=== PATIENT | male | born 1975 | race Caucasian/White ===

== ENCOUNTER 2017-09-28 19:15 | Observation (INO) ==
[2017-09-29] MEDS ORDERED: Acetaminophen 500 MG Tablet PO PRN (00:02)
[2017-09-29 01:15] LABS: Creatine Kinase 76 U/L (39-308)
[2017-09-29 03:48] LABS: Anion Gap 10 meq/L (5-15); Blood Urea Nitrogen 12 mg/dL (7-18); Calcium 8.4 mg/dL (8.5-10.1); Carbon Dioxide 24.4 meq/L (21.0-32.0); Chloride 112 meq/L (98-107); Glomerular Filtration Rate Greater Than 89 mL/min (>89); Glucose,Random 86 mg/dL (74-106); Lipase 210 U/L (73-393); Magnesium 2.3 mg/dL (1.5-2.5); Sodium 146 meq/L (136-145)
[2017-09-29 04:05] LABS: Creatine Kinase 72 U/L (39-308)
[2017-09-29 04:47] LABS: Baso % (Auto) 0.4 % (0.0-2.0); Eos # (Auto) 0.2 th/mm3 (0.0-0.4); Eos % (Auto) 2.3 % (0.0-4.0); Hematocrit 42.9 % (39.0-51.0); Hemoglobin 14.7 gm/dL (13.0-17.0); Lymph # (Auto) 2.3 th/mm3 (1.0-4.8); Lymph % (Auto) 24.8 % (9.0-44.0); Mean Corpuscular HGB Conc 34.3 % (32.0-36.0); Mean Corpuscular Hemoglobin 32.3 pg (27.0-34.0); Mean Corpuscular Volume 94.1 fL (80.0-100.0); Mean Platelet Volume 7.5 fL (7.0-11.0); Mono # (Auto) 0.5 th/mm3 (0.0-0.9); Mono % (Auto) 5.8 % (0.0-8.0); Neut # (Auto) 6.2 th/mm3 (1.8-7.7); Neut % (Auto) 66.7 % (16.0-70.0); Platelet Count 220 th/mm3 (150-450); Red Blood Count 4.56 mil/mm3 (4.50-5.90); Red Cell Distribution Width 12.7 % (11.6-17.2); White Blood Count 9.3 th/mm3 (4.0-11.0)
--- NOTE | 2017-09-29 08:04 | P.HPCA ---
History of Present Illness Primary Care Physician: UNKNOWN Chief Complaint: Chest pain History of Present Illness: This is a 42-year-old male with history of tobacco abuse that presents to ED via private vehicle with a female acquaintance with complaint of chest discomfort. First episode began yesterday [place] He describes as a central stabbing discomfort. Rated as an 8-9 out of 10. He was short of breath. No nausea or diaphoresis. No radiation of the discomfort. States he got out of the water and essentially rested and symptoms resolve within 15 minutes. While driving in his truck to the hospital it began again similar symptoms lasted a similar duration of time. It then recurred again while in the ED. Also lasting about 15 minutes. Has had episodes of chest discomfort before. Based the chest discomfort was evaluated about 7 or 8 years ago and that he had a stress test that was normal. Denies history of hypertension, hyperlipidemia, diabetes, and CAD. Currently denies chest discomfort. States that he would not be able to walk on a treadmill, states that he broke his fibula and points to below his left knee to indicate where the fracture was. This occurred about 10 weeks ago and is still bothers him. Denies family history of CAD. Patient smokes 1 pack a series daily for about 25 years. He has a few beers a couple times a week. Denies illicit drug use. Surgical history: Denies. - Diagnosis (1) Chest pain (2) Tobacco abuse - Inpatient Certification If this patient has been admitted as an Inpatient: I certify that the inpatient services were ordered in accordance with Medicare regulations governing the order. This includes certification that hospital inpatient services are reasonable and necessary and in the case of services not specified as inpatient-only under 42 CFR 419.22(n), that they are appropriately provided as inpatient services in accordance to with the 2-midnight benchmark under 43 CFR 412.3(e) Review of Systems General: Patient denies fevers, chills, and recent travel. HEENT: Patient denies headache, sore throat, difficulty swallowing. Cardiovascular: Has the chest discomfort as mentioned above. [place] as if heart was beating rapidly and pounding hard. No syncope. Denies diaphoresis. Respiratory: He was short of breath. Denies inspirational chest discomfort. Denies coughing wheezing or hemoptysis. GI: Patient denies nausea, vomiting, diarrhea, abdominal pain, bloody stools. Musculoskeletal: Complains of pain to the proximal left fibula which he states he fractured about 10 weeks ago. Patient denies joint pain or edema. Denies calf pain or edema. Neurovascular: Patient denies numbness, tingling, weakness in extremities. Denies headache. Endocrine: Denies polyuria and polydipsia. Hematologic: Denies easy bruising. Skin: Denies rash or itching. PMFSH - History History Provided By: Patient - Medical History Medical History: Medical History (Last Updated 09/28/17 @ 19:33 by Susanna Ly) Patient denies medical problems - Tobacco History Second Hand Smoke Exposure: Yes Tobacco Use In Past 30 Days: Yes Smoking Status: Current every day smoker Tobacco Type: Cigarettes - Alcohol History How Often Do You Have a Drink Containing Alcohol: Monthly or less - Substance Use History Substance History: No History of Abuse Medications and Allergies Active Medications: Active Medications Acetaminophen (Tylenol) 500 mg PO Q4H PRN PRN Reason: HEADACHE Ondansetron HCl (Zofran Odt) 4 mg PO Q6H PRN PRN Reason: NAUSEA Pantoprazole Sodium (Protonix) 40 mg PO DAILY ONIEL Sodium Chloride (Ns Flush) 2 ml IV.FLUSH PRN PRN PRN Reason: FLUSH AFTER USING IV ACCESS Sodium Chloride (Ns Flush) 2 ml IV.FLUSH BID ONIEL Allergies Allergy/AdvReac Type Severity Reaction Status Date / Time No Known Allergies Allergy Unverified 09/28/17 19:18 Home Medications Medication Instructions Recorded Confirmed Type No Known Home Medications 09/28/17 09/29/17 History Exam Vital signs: Vital Signs 09/28/17 23:11 09/29/17 00:56 09/29/17 03:02 Temperature 98.2 F 97.8 F Pulse Rate 77 71 72 Respiratory Rate 18 Blood Pressure 113/69 116/71 Pulse Oximetry 95 95 Intake & Output 09/28/17 09/29/17 09/29/17 18:59 06:59 18:59 Weight 70.45 kg Narrative: GENERAL: This is a well-nourished, well-developed patient, in no apparent distress. Patient speaks in clear complete sentences. Patient is pleasant. HEENT: Head is atraumatic and normocephalic. Neck is supple without lymphadenopathy and trachea is midline. No JVD or carotid bruits. CARDIOVASCULAR: Regular rate and rhythm without murmurs, gallops, or rubs. RESPIRATORY: Clear to auscultation. Breath sounds equal bilaterally. No wheezes , rales, or rhonchi. Chest wall is nontender. No use of accessory muscles. GASTROINTESTINAL: Abdomen is nontender, nondistended. Abdomen soft. No obvious pulsatile mass or bruit. No CVA tenderness. Strong femoral pulses bilaterally. Normal bowel sounds in all quadrants. MUSCULOSKELETAL: Patient is moving upper and lower extremities freely. No calf tenderness or edema, no Homans sign. Strong pulses in upper and lower extremities. NEUROLOGICAL: Patient is alert and oriented. Cranial nerves 2-12 are grossly intact. No focal deficits and speech is clear. SKIN: No rash and turgor is normal. Results 09/29/17 03:45 09/29/17 03:01 Cardiac Enzymes 09/29/17 09/29/17 09/29/17 Range/Units 00:25 03:01 03:45 Troponin I Less than 0.02 L Less than 0.02 L (0.02-0.05) ng/mL B-Natriuretic Peptide 14 (0-100) pg/mL Coagulation 09/29/17 09/29/17 Range/Units 03:45 03:45 PT 10.0 (9.8-11.6) sec APTT 24.0 L (24.3-30.1) sec B-Natriuretic Peptide 14 (0-100) pg/mL CBC 09/29/17 Range/Units 03:45 WBC 9.3 (4.0-11.0) th/mm3 RBC 4.56 (4.50-5.90) mil/mm3 Hgb 14.7 (13.0-17.0) gm/dL Hct 42.9 (39.0-51.0) % Plt Count 220 (150-450) th/mm3 Neut # (Auto) 6.2 (1.8-7.7) th/mm3 Lymph # (Auto) 2.3 (1.0-4.8) th/mm3 Sandoval # (Auto) 0.5 (0.0-0.9) th/mm3 Eos # (Auto) 0.2 (0.0-0.4) th/mm3 Baso # (Auto) 0.0 (0.0-0.2) th/mm3 Comprehensive Metabolic Panel 09/29/17 Range/Units 03:01 Sodium 146 H (136-145) meq/L Potassium 4.0 (3.5-5.1) meq/L Chloride 112 H (98-107) meq/L Carbon Dioxide 24.4 (21.0-32.0) meq/L BUN 12 (7-18) mg/dL Creatinine 0.82 (0.60-1.30) mg/dL Calcium 8.4 L D (8.5-10.1) mg/dL Intake and Output 09/28/17 09/29/17 09/29/17 22:59 06:59 14:59 Other: Weight 70.45 kg EKG interpretations - EKG EKG shows: sinus rhythm (EKGs are sinus rhythm without significant ST segment depressions or elevations.) Caprini VTE Risk Assessment Caprini VTE Risk Assessment: No/Low Risk (score <= 1) Caprini Risk Assessment Model: Point Value = 1 Point Value = 2 Point Value = 3 Point Value = 5 Age 41-60 Minor surgery BMI > 25 kg/m2 Swollen legs Varicose veins or History of unexplained or recurrent spontaneous Oral contraceptives or hormone replacement Sepsis (< 1 month) Serious lung disease, including pneumonia (< 1 month) Abnormal pulmonary function Acute myocardial infarction Congestive heart failure (< 1 month) History of inflammatory bowel disease Medical patient at bed rest Age 61-74 Arthroscopic surgery Major open surgery (> 45 min) Laparoscopic surgery (> 45 min) Malignancy Confined to bed (> 72 hours) Immobilizing plaster cast Central venous access Age >= 75 History of VTE Family history of VTE Factor V Leiden Prothrombin [id number] Lupus anticoagulant Anticardiolipin antibodies Elevated serum homocysteine Heparin-induced thrombocytopenia Other congenital or acquired thrombophilia Stroke (< 1 month) Elective arthroplasty Hip, pelvis, or leg fracture Acute spinal cord injury (< 1 month) Prophylaxis Regimen: Total Risk Factor Score Risk Level Prophylaxis Regimen 0-1 Low Early ambulation 2 Moderate Order ONE of the following: *Sequential Compression Device (SCD) *Heparin 5000 units SQ BID 3-4 Higher Order ONE of the following medications: *Heparin 5000 units SQ TID *Enoxaparin/Lovenox 40 mg SQ daily (WT < 150 kg, CrCl > 30 mL/min) *Enoxaparin/Lovenox 30 mg SQ daily (WT < 150 kg, CrCl > 10-29 mL/min) *Enoxaparin/Lovenox 30 mg SQ BID (WT < 150 kg, CrCl > 30 mL/min) AND/OR *Sequential Compression Device (SCD) 5 or more Highest Order ONE of the following medications: *Heparin 5000 units SQ TID (Preferred with Epidurals) *Enoxaparin/Lovenox 40 mg SQ daily (WT < 150 kg, CrCl > 30 mL/min) *Enoxaparin/Lovenox 30 mg SQ daily (WT < 150 kg, CrCl > 10-29 mL/min) *Enoxaparin/Lovenox 30 mg SQ BID (WT < 150 kg, CrCl > 30 mL/min) AND *Sequential Compression Device (SCD) Assessment and Plan - Assessment (1) Chest pain Code(s): R07.9 - Chest pain, unspecified Status: Acute (2) Tobacco abuse Code(s): Z72.0 - Tobacco use Status: Chronic - Plan * Chest pain: Patient has had serial cardiac enzymes and EKGs for ruling out purposes. He will be seen by Dr. Hagan of cardiology in the chest pain center. States he cannot walk on a treadmill secondary to fractured left fibula , subsequently patient will have a Lexiscan. Patient will be discharged home if stress test is nonischemic with instructions to follow-up with PCP. Return to ED for interval issues. * Tobacco abuse: Patient counseled on importance of smoking cessation. Patient is stable at this time. He is agreeable to this plan. H&P: Quality - VTE Deep Vein Thrombosis/Pulmonary Embolism Present on Admission: No
--- NOTE | 2017-09-29 09:42 | P.PNCA ---
Subjective Interval history: Patient was presented by physician information systems coordinator. The documentation was then reviewed including radiographic and laboratory data. The patient was then seen and examined personally. History is as described with the additional information that the patient tells me just prior to the onset of chest pain his heart was pounding fast and felt like it was going to "come out of my chest". His girlfriend checked his pulse on several occasions and it ranged from 120-110. Otherwise history is as recorded Physical Exam Vital signs: Vital Signs 09/28/17 23:11 09/29/17 00:56 09/29/17 03:02 Temperature 98.2 F 97.8 F Pulse Rate 77 71 72 Respiratory Rate 18 Blood Pressure 113/69 116/71 Pulse Oximetry 95 95 09/29/17 08:15 Temperature 97.5 F L Pulse Rate 63 Respiratory Rate 18 Blood Pressure 118/82 Pulse Oximetry 96 Intake & Output 09/28/17 09/29/17 09/29/17 18:59 06:59 18:59 Weight 70.45 kg Narrative: Well-nourished well-developed man resting comfortably other than complaints of headache Head normocephalic atraumatic Eyes PERRLA EOMI sclera clear Mouth mucous membranes moist and well papillated no lesions Neck supple no JVD masses nodes or bruits Chest clear to auscultation with no rales wheezes or rhonchi Cardiovascular regular sinus rhythm no gallops rubs or murmurs Abdomen soft nontender no guarding or rebound Extremities no clubbing cyanosis or edema still slightly tender over the area of previous fracture Skin multiple tattoos Assessment and Plan - Plan * Chest pain: Patient has had serial cardiac enzymes and EKGs for ruling out purposes. He will be seen by Dr. Hagan of cardiology in the chest pain center. States he cannot walk on a treadmill secondary to fractured left fibula , subsequently patient will have a Lexiscan. Patient will be discharged home if stress test is nonischemic with instructions to follow-up with PCP. Return to ED for interval issues. * Tobacco abuse: Patient counseled on importance of smoking cessation. Patient is stable at this time. He is agreeable to this plan. Above reviewed with physician information systems coordinator and I am in agreement. (Dr. Hagan)
--- NOTE | 2017-09-29 10:08 | ECG ---
Date Performed: 09/29/2017 Time Performed: 02:57:25 PTAGE: 42 years EKG: Sinus rhythm MODERATE VOLTAGE CRITERIA FOR LVH, CONSIDER NORMAL VARIANT BORDERLINE ECG No significant change NO PREVIOUS TRACING DOCTOR: Luke Hagan Interpretating Date/Time 09/29/2017 10:07:01
--- NOTE | 2017-09-29 10:08 | ECG ---
Date Performed: 09/29/2017 Time Performed: 00:15:49 PTAGE: 42 years EKG: Sinus rhythm MINIMAL VOLTAGE CRITERIA FOR LVH, CONSIDER NORMAL VARIANT BORDERLINE ECG No significant change PREVIOUS TRACING : 09/28/2017 20.36 DOCTOR: Luke Hagan Interpretating Date/Time 09/29/2017 10:07:14
[2017-09-29] MEDS ORDERED: Regadenoson Inj 0.4 MG/5 ML Syringe IV.PUSH ONE (11:50)
--- NOTE | 2017-09-29 13:18 | NM ---
EXAM DATE: 09/29/2017 1:11 PM EDT AGE/SEX: 42 years / Male INDICATIONS:Angina. . Chest pain. CLINICAL DATA: This is the patient's initial encounter. Patient reports that signs and symptoms have been present for 2 days and indicates a pain score of 1/10. MEDICAL/SURGICAL HISTORY: None. None. COMPARISON: No prior exams available for comparison. DOSE: 8.8 mCi Tc 99m Myoview at rest 25.8 mCi [id number] at stress 0.4 Dobutamine STRESS SYMPTOMS: Short of breath. EJECTION FRACTION: 53 % TECHNIQUE: The patient underwent pharmacologic stress with infusion of prescribed dose. Continuous ECG tracing was monitored during stress. Gated SPECT imaging was performed after stress and conventi onal SPECT imaging was performed at rest. The examination was performed on a SPECT/CT scanner, both attenuation and non-corrected datasets were reviewed. FINDINGS: Distribution: The maximum perfused segment at stress is in the anteroseptal wall. Perfusion Study: Mild relative decrease in apical perfusion without evidence of redistribution. Gated Study: There are intact wall motion and wall thickening without hypokinetic or dyskinetic segm ents. The ejection fraction is calculated at 53%. RISK CATEGORY: Low (<1% Annual Motality Rate) CONCLUSION: Probably normal exam. Electronically signed by: Israel Wiley MD 09/29/2017 1:16 PM EDT
--- NOTE | 2017-10-10 17:46 | TR ---
Date Performed: 09/29/2017 Time Performed: 11:54:19 DOCTOR: Dayday [place] DRUG LIST: CLINICAL HISTORY: REASON FOR TEST: REASON FOR ENDING: OBSERVATION: CONCLUSION: COMMENTS: Lexiscan stress test was performed under standard four minute protocol. Radionuclide was injected one minute prior to ending the test. No electrocardiographic abormalities were present t o suggest ischemia. Nuclear imaging and interpretation are pending.
== END 2017-09-29 18:45 | disposition home or self-care (01) ==
LOC: NEPHCDU 22:45 → NEDDLT 22:45
PROVIDERS: ADMIT Internal Medicine Cardiovascular Disease; ATTEND Internal Medicine Cardiovascular Disease